=== PATIENT | male | born 1970 | race Caucasian/White ===

== ENCOUNTER 2016-12-13 16:08 | Emergency (ER) | payer OTHER ==
[2016-12-13] MEDS ORDERED: ASPIRIN 81 MG TABLET, CHEWABLE PO ONE (16:38)
--- NOTE | 2016-12-13 16:39 | ER Document Report ---
ED Medical Screen (RME) - General Chief Complaint: Chest Pain > 30 Stated Complaint: HEART PROBLEMS Time Seen by Provider: 12/13/16 16:23 Notes: 46-year-old male with stent 2 in the past, last placed 2015, who presents today with some intermittent left-sided biting" pain. No radiation, no aggravating relieving factors. No nausea, vomiting, shortness of breath, calf pain or leg swelling. TRAVEL OUTSIDE OF THE [place] IN LAST 30 DAYS: No - Related Data Allergies/Adverse Reactions: No Known Allergies Allergy (Verified 12/13/16 16:25) Past Medical History - Past Medical History Cardiac Medical History: Reports: Hx Heart Attack - September 2015 Renal/ Medical History: Denies: Hx Peritoneal Dialysis Musculoskeltal Medical History: Reports Hx Arthritis Past Surgical History: Reports: Hx Cardiac Catheterization - 2 stents, Hx Orthopedic Surgery - L knee - Immunizations Hx Diphtheria, Pertussis, Tetanus Vaccination: Yes Physical Exam - Vital signs Vitals: Temp Pulse Resp BP Pulse Ox 97.8 F 90 16 132/74 H 95 12/13/16 16:12 12/13/16 16:12 12/13/16 16:12 12/13/16 16:12 12/13/16 16:12 Course - Vital Signs Vital signs: Temp Pulse Resp BP Pulse Ox 97.8 F 90 16 132/74 H 95 12/13/16 16:12 12/13/16 16:12 12/13/16 16:12 12/13/16 16:12 12/13/16 16:12
[2016-12-13 17:21] LABS: ABSOLUTE BASOPHILS # (AUTO) 0.2 10^3/uL (0.0-0.2); ABSOLUTE EOSINOPHILS # (AUTO) 0.5 10^3/uL (0.0-0.6); ABSOLUTE LYMPHOCYTES (AUTO) 4.5 10^3/uL (0.5-4.7); ABSOLUTE MONOCYTES (AUTO) 0.9 10^3/uL (0.1-1.4); ABSOLUTE NEUT (AUTO) 5.1 10^3/uL (1.7-8.2); BASOPHILS % (AUTO) 1.4 % (0-2); EOSINOPHILS % (AUTO) 4.3 % (0-6); HEMATOCRIT 48.9 % (37.9-51.0); HEMOGLOBIN 16.8 g/dL (13.5-17.0); HGB HCT DIFFERENCE 1.5; LYMPHOCYTES % (AUTO) 40.5 % (13-45); MEAN CORPUSCULAR HEMOGLOBIN 29.9 pg (27.0-33.4); MEAN CORPUSCULAR HGB CONC 34.3 g/dL (32.0-36.0); MEAN CORPUSCULAR VOLUME 87 fl (80-97); MONOCYTES % (AUTO) 7.7 % (3-13); RED BLOOD COUNT 5.61 10^6/uL (4.35-5.55); SEGMENTED NEUTROPHILS % (AUTO) 46.1 % (42-78)
[2016-12-13 18:15] LABS: BLOOD UREA NITROGEN 14 mg/dL (7-20); CALCIUM 9.8 mg/dL (8.4-10.2); CREATININE RESULT 1.03 mg/dL (0.52-1.25); GLUCOSE 91 mg/dL (75-110)
[2016-12-13 18:16] LABS: ANION GAP 10 (5-19); CARBON DIOXIDE 27 mmol/L (22-30); CHLORIDE 102 mmol/L (98-107); POTASSIUM 4.5 mmol/L (3.6-5.0); SODIUM 138.9 mmol/L (137-145)
--- NOTE | 2016-12-13 19:58 | ER Document Report ---
ED Cardiac - General Chief Complaint: Chest Pain > 30 Stated Complaint: HEART PROBLEMS Time Seen by Provider: 12/13/16 16:23 Mode of Arrival: Ambulatory Information source: Patient TRAVEL OUTSIDE OF THE [place] IN LAST 30 DAYS: No - HPI Patient complains to provider of: Chest pain Was the onset of pain: Sudden Is the pain a: New problem Chest pain location: Pleuritic Quality of pain: Sharp, Stabbing Severity now: None Severity at worst: Moderate Pain level currently: 4 Chest pain precipitating factors: At Rest Positive cardiac history: Yes Exacerbated by: Deep breaths, Torso movement Relieved by: Nothing Notes: Patient is a 46-year-old male who presents to the emergency room complaining of sharp stabbing, fleeting intermittent chest pain that's been going on for the past month, he reports he has anywhere from 2-8 episodes per day, there are no aggravating or alleviating symptoms specifically, however when he does take a deep breath or moves a certain way he does get the pain at times, patient has a history of coronary artery disease with an LA and 2 stents placed in September 2015 , has a strong family history, has a follow up with his lamp assembler next week, denies any other symptoms associated with the chest pain, no shortness of breath , no diaphoresis, no leg pain, no recent travel or periods of immobilization - Related Data Allergies/Adverse Reactions: No Known Allergies Allergy (Verified 12/13/16 16:25) Past Medical History - General Information source: Patient - Social History Smoking Status: Unknown if Ever Smoked Family History: Reviewed & Not Pertinent Patient has suicidal ideation: No Patient has homicidal ideation: No - Past Medical History Cardiac Medical History: Reports: Hx Heart Attack - September 2015 Renal/ Medical History: Denies: Hx Peritoneal Dialysis Musculoskeltal Medical History: Reports Hx Arthritis Past Surgical History: Reports: Hx Cardiac Catheterization - 2 stents, Hx Orthopedic Surgery - L knee - Immunizations Hx Diphtheria, Pertussis, Tetanus Vaccination: Yes Review of Systems - Review of Systems Constitutional: No symptoms reported EENT: No symptoms reported Cardiovascular: Chest pain Respiratory: No symptoms reported Gastrointestinal: No symptoms reported Genitourinary: No symptoms reported Male Genitourinary: No symptoms reported Musculoskeletal: No symptoms reported Skin: No symptoms reported Hematologic/Lymphatic: No symptoms reported Neurological/Psychological: No symptoms reported -: Yes All other systems reviewed and negative Physical Exam - Vital signs Vitals: Temp Pulse Resp BP Pulse Ox 97.8 F 90 16 132/74 H 95 12/13/16 16:12 12/13/16 16:12 12/13/16 16:12 12/13/16 16:12 12/13/16 16:12 Interpretation: Normal - General General appearance: Appears well, Alert - HEENT Head: Normocephalic, Atraumatic Eyes: Normal Pupils: PERRL - Respiratory Respiratory status: No respiratory distress Chest status: Nontender Breath sounds: Normal Chest palpation: Normal - Cardiovascular Rhythm: Regular Heart sounds: Normal auscultation Murmur: No - Abdominal Inspection: Normal, Obese Distension: No distension Bowel sounds: Normal Tenderness: Nontender Organomegaly: No organomegaly - Back Back: Normal, Nontender - Extremities General upper extremity: Normal inspection, Nontender, Normal color, Normal ROM , Normal temperature General lower extremity: Normal inspection, Nontender, Normal color, Normal ROM , Normal temperature, Normal weight bearing. No: Christine's sign - Neurological Neuro grossly intact: Yes Cognition: Normal Orientation: AAOx4 Jennifer Coma Scale Eye Opening: Spontaneous Jennifer Coma Scale Verbal: Oriented Jennifer Coma Scale Motor: Obeys Commands [place] Coma Scale Total: 15 Speech: Normal Motor strength normal: LUE, RUE, LLE, RLE Sensory: Normal - Psychological Associated symptoms: Normal affect, Normal mood - Skin Skin Temperature: Warm Skin Moisture: Dry Skin Color: Normal Course - Re-evaluation Re-evalutation: 12/13/16 20:02 Patient has been having symptoms over the past month, workup in the emergency room today is unremarkable, I did discuss the possibility of PE, however his symptoms appear to be consistent with this, I offered to perform a CTA, however patient declined, stating that he has a follow-up with his lamp assembler next week, he will return if symptoms worsen in any way, patient acknowledges understanding and agreement with this plan - Vital Signs Vital signs: Temp Pulse Resp BP Pulse Ox 97.8 F 90 16 132/74 H 95 12/13/16 16:12 12/13/16 16:12 12/13/16 16:12 12/13/16 16:12 12/13/16 16:12 - Laboratory Result Diagrams: 12/13/16 16:40 12/13/16 16:40 Laboratory results interpreted by me: 12/13/16 16:40 WBC 11.0 H RBC 5.61 H - Diagnostic Test Radiology reviewed: Image reviewed, Reports reviewed - EKG Interpretation by Me EKG shows normal: Sinus rhythm Rate: Normal Rhythm: NSR Discharge - Discharge Clinical Impression: Chest pain Qualifiers: Chest pain type: unspecified Qualified Code(s): R07.9 - Chest pain, unspecified Condition: Stable Disposition: HOME, SELF-CARE Instructions: Chest Pain of Unclear Cause ([facility]) Additional Instructions: Follow up with your primary care provider and lamp assembler in one to 2 days. Return to the emergency room immediately if symptoms worsen or any additional concerns.
[2016-12-13 20:22] VITALS: BP 115/88
--- NOTE | 2016-12-13 22:10 | EKG REPORT ---
SEVERITY:- NORMAL ECG - SINUS RHYTHM : Confirmed by: Joi Grant MD 13-Dec-2016 22:10:26
== END 2016-12-13 20:21 | disposition home or self-care (01) ==
LOC: ER 16:08
DX: R07.9 Chest pain, unspecified (principal); I25.2 Old myocardial infarction
CPT/HCPCS: 36415; 71020; 80048; 84484; 85025; 93005; 93010; 99285

== ENCOUNTER 2017-10-25 06:20 | Emergency (ER) | payer OTHER ==
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
[2017-10-25] MEDS ORDERED: MECLIZINE HCL 25 MG TABLET PO ONE (08:25)
[2017-10-25 09:25] VITALS: BP 105/74
== END 2017-10-25 09:28 | disposition home or self-care (01) ==
LOC: ER 06:20
DX: R42 Dizziness and giddiness (principal); R11.0 Nausea; R25.1 Tremor, unspecified; F17.200 Nicotine dependence, unspecified, uncomplicated
CPT/HCPCS: 99283

== ENCOUNTER 2017-12-03 12:07 | Emergency (ER) | payer SELFPAY ==
--- NOTE | 2017-12-03 12:40 | ER Document Report ---
ED Medical Screen (RME) - General Chief Complaint: Vertigo Stated Complaint: DIZZINESS Time Seen by Provider: 12/03/17 12:34 Notes: 47-year-old male patient history of vertigo, much worse today. Head movement causes the room to spin violently. He has not taken any meclizine because it makes him drowsy and he does not like that sensation. He was seen here in September for similar symptoms and had Nadeem maneuver performed which relieved his symptoms for about 5 hours and then they returned. I have greeted and performed a rapid initial assessment of this patient. A comprehensive ED assessment and evaluation of the patient, analysis of test results and completion of the medical decision making process will be conducted by additional ED providers. TRAVEL OUTSIDE OF THE [place] IN LAST 30 DAYS: No - Related Data Allergies/Adverse Reactions: almond Allergy (Verified 12/03/17 12:10) Home Medications: metoprolol. asa. atrovastatin Past Medical History - Social History Frequency of alcohol use: None Drug Abuse: None - Past Medical History Cardiac Medical History: Reports: Hx Coronary Artery Disease, Hx Heart Attack - September 2015, [address] Baldwin [facility], Hx Hypercholesterolemia Comment Only: Hx Hypertension - meds for regulation Renal/ Medical History: Reports: Hx Kidney Stones. Denies: Hx Peritoneal Dialysis Musculoskeltal Medical History: Reports Hx Arthritis Past Surgical History: Reports: Hx Cardiac Catheterization - 2 stents, Hx Orthopedic Surgery - L knee - Immunizations Hx Diphtheria, Pertussis, Tetanus Vaccination: Yes Physical Exam - Vital signs Vitals: Temp Pulse Resp BP Pulse Ox 97.6 F 76 18 111/73 97 12/03/17 12:16 12/03/17 12:16 12/03/17 12:16 12/03/17 12:16 12/03/17 12:16 Course - Vital Signs Vital signs: Temp Pulse Resp BP Pulse Ox 97.6 F 76 18 111/73 97 12/03/17 12:16 12/03/17 12:16 12/03/17 12:16 12/03/17 12:16 12/03/17 12:16
[2017-12-03] MEDS ORDERED: DIAZEPAM 5 MG TABLET PO ONE (15:32)
[2017-12-03] MEDS ORDERED: NORMAL SALINE 1000 ML 1,000 ML IV ONE (15:32)
[2017-12-03] MEDS ORDERED: AMOXICILLIN TR/POT CLAVULANATE 500-125 MG TAB PO ONE (15:33)
--- NOTE | 2017-12-03 15:38 | ER Document Report ---
ED General - General Chief Complaint: Vertigo Stated Complaint: DIZZINESS Time Seen by Provider: 12/03/17 12:34 Mode of Arrival: Ambulatory Information source: Patient, Relative Notes: 47-year-old male with a history of coronary artery disease, tinnitus presents with complaint of dizziness. Patient states he has been experiencing intermittent episodes of dizziness that he describes as the room spinning for approximately 5 weeks. With worsening of the dizziness over the last few days. Patient does not want to take the meclizine that was prescribed to him because it makes him "narcoleptic". He states that the episodes occur frequently but last 10-20 seconds. Patient states dizziness worsens when he turns onto his right side and improves when he stands up. Patient states he has been experiencing right ear ringing for his entire life. Reports multiple ear infections with ruptured tympanic membranes as a child. Patient denies any recent illnesses, head injury, weakness, slurred speech. TRAVEL OUTSIDE OF THE [place] IN LAST 30 DAYS: No - HPI Onset: Other Onset/Duration: Gradual, Worse Quality of pain: No pain Associated symptoms: denies: Headache, Nausea, Vomiting Exacerbated by: Supine, Sitting Relieved by: Standing Similar symptoms previously: Yes Recently seen / treated by doctor: Yes - Related Data Allergies/Adverse Reactions: almond Allergy (Verified 12/03/17 12:10) morphine Allergy (Verified 12/03/17 12:50) Home Medications: metoprolol. asa. atrovastatin Past Medical History - General Information source: Patient, Relative - Social History Smoking Status: Current Every Day Smoker Frequency of alcohol use: None Drug Abuse: None Family History: Reviewed & Not Pertinent Patient has suicidal ideation: No Patient has homicidal ideation: No - Past Medical History Cardiac Medical History: Reports: Hx Coronary Artery Disease, Hx Heart Attack - September 2015, [address] Baldwin [facility], Hx Hypercholesterolemia Comment Only: Hx Hypertension - meds for regulation Renal/ Medical History: Reports: Hx Kidney Stones. Denies: Hx Peritoneal Dialysis Musculoskeltal Medical History: Reports Hx Arthritis Past Surgical History: Reports: Hx Cardiac Catheterization - 2 stents, Hx Orthopedic Surgery - L knee - Immunizations Hx Diphtheria, Pertussis, Tetanus Vaccination: Yes Review of Systems - Review of Systems Notes: Patient denies fever, chills, nausea, vomiting, headache, ear pain, sore throat , cough, chest pain, shortness of breath, abdominal pain, back pain, dysuria, hematuria, rash, Physical Exam - Vital signs Vitals: Temp Pulse Resp BP Pulse Ox 97.6 F 76 18 111/73 97 12/03/17 12:16 12/03/17 12:16 12/03/17 12:16 12/03/17 12:16 12/03/17 12:16 Interpretation: Normal. No: Hypertensive, Tachypneic Notes: PHYSICAL EXAMINATION: GENERAL: Well-appearing, well-nourished and in no acute distress. HEAD: Atraumatic, normocephalic. EYES: Pupils equal round and reactive to light, extraocular movements intact, sclera anicteric, conjunctiva are normal. Right sided nystagmus. No vertical nystagmus ENT: Nares patent, oropharynx clear without exudates. Moist mucous membranes. Right TM-erythematous, bulging, right external canal, erythematous with swelling no exudate. NECK: Normal range of motion, supple without lymphadenopathy LUNGS: Breath sounds clear to auscultation bilaterally and equal. No wheezes rales or rhonchi. HEART: Regular rate and rhythm without murmurs ABDOMEN: Soft, nontender, nondistended abdomen. No guarding, no rebound. No masses appreciated. Musculoskeletal: Normal range of motion, no pitting or edema. No cyanosis. NEUROLOGICAL: Cranial nerves grossly intact. Normal speech, normal gait. Normal sensory, motor exams. NIH 0 PSYCH: Normal mood, normal affect. SKIN: Warm, Dry, normal turgor, no rashes or lesions noted. Course - Re-evaluation Re-evalutation: Head CTA 12/03/17 15:31 IMPRESSION: 1. Normal appearance of the brain. 2. Normal CTA of the head. 3. Normal CTA of the carotids. Neck CTA 12/03/17 15:31 IMPRESSION: 1. Normal appearance of the brain. 2. Normal CTA of the head. 3. Normal CTA of the carotids. 12/03/17 21:40 47-year-old male with a history of chronic tinnitus, multiple previous ear infections and tympanic membrane ruptures presents with complaint of dizziness that he describes as the room spinning. Patient has no associated nausea or vomiting. He states that symptoms are worsened when he rolls to his right side. He states episodes last 10-30 seconds. Patient was seen previously and prescribed meclizine which he does not want to take because it makes him too sleepy. He denies any recent illnesses. He denies any head injury. Exam is significant for right sided nystagmus, there is no vertical nystagmus, and an erythematous, bulging right tympanic membranes and external canal. Symptoms are reproducible with rapid head movement and sitting up. Patient has an NIH of 0, he is able to ambulate independently. CTA of the head and neck were obtained and within normal limits. Patient received IV fluids, Augmentin, meclizine during his ED course. On reevaluation patient is well-appearing, reports resolution of symptoms. ENT referral was provided. Patient's exam is consistent with benign positional vertigo. Patient provided the opportunity to ask questions, and express concerns. Discharge instructions discussed. Patient is agreeable with discharge home. Return indications explained and discussed with the patient who displays understanding. Patient encouraged to return to the emergency department immediately with any concerns. 12/03/17 21:44 - Vital Signs Vital signs: Temp Pulse Resp BP Pulse Ox 97.4 F 68 16 124/72 97 12/03/17 18:10 12/03/17 18:10 12/03/17 18:10 12/03/17 18:10 12/03/17 18:10 - Laboratory Result Diagrams: 12/03/17 16:00 Laboratory results interpreted by me: 12/03/17 16:00 ALT 79 H - Diagnostic Test Radiology reviewed: Image reviewed Discharge - Discharge Clinical Impression: Right otitis media Qualifiers: Otitis media type: unspecified Qualified Code(s): H66.91 - Otitis media, unspecified, right ear BPPV (benign paroxysmal positional vertigo) Qualifiers: Laterality: right Qualified Code(s): H81.11 - Benign paroxysmal vertigo, right ear Disposition: HOME, SELF-CARE Instructions: Otitis Media ([facility]), Vertigo ([facility]) Additional Instructions: Follow up with your physician tomorrow for further care or return to the ED IMMEDIATELY if symptoms worsen or new concerns occur. If you cannot afford to follow up with your primary care physician a list of low cost clinics have been provided at the end of your discharge papers as well. Prescriptions: Amox Tr/Potassium Clavulanate [Augmentin 875-125 Tablet] 1 tab PO BID 10 Days # 20 tablet Meclizine HCl [Antivert 12.5 mg Tablet] 12.5 mg PO BID PRN #14 tab PRN Reason: Polymyxin B Sulf/Trimethoprim [Polytrim Eye Drops] 10 ml OP Q4H 7 Days #1 bottle Referrals: NATACHA DOCKERY DO [ASSOCIATE] - 12/04/17
[2017-12-03 16:37] LABS: ALANINE AMINOTRANSFERASE 79 U/L (21-72); ALBUMIN 4.8 g/dL (3.5-5.0); ALKALINE PHOSPHATASE 78 U/L (38-126); ANION GAP 12 (5-19); ASPARTATE AMINO TRANSFERASE 52 U/L (17-59); BILIRUBIN,DIRECT 0.4 mg/dL (0.0-0.4); BILIRUBIN,TOTAL 0.7 mg/dL (0.2-1.3); BLOOD UREA NITROGEN 16 mg/dL (7-20); CALCIUM 10.1 mg/dL (8.4-10.2); CARBON DIOXIDE 29 mmol/L (22-30); CHLORIDE 102 mmol/L (98-107); GLUCOSE 91 mg/dL (75-110); POTASSIUM 4.5 mmol/L (3.6-5.0); SODIUM 143.3 mmol/L (137-145); TOTAL PROTEIN 7.9 g/dL (6.3-8.2)
--- NOTE | 2017-12-03 16:37 | RADIOLOGY REPORT (SQ) ---
EXAM DESCRIPTION: CTA NECK; CTA HEAD COMPLETED DATE/TIME: 12/03/2017 4:24 pm REASON FOR STUDY: Persistent vertigo COMPARISON: None. TECHNIQUE: Axial dynamic scanning technique with dynamic contrast enhancement through the extra-scrap iron cutter nial carotid and vertebral arteries and cerebral arteries. Pre contrast CT brain scanning was also performed. Multiplanar reconstruction. 3-D MIPS and Volume-rendered images acquired at the worksta tion and saved to PACS. Images are reviewed in soft tissue, bone, lung windows. All CT scanners at this facility use dose modulation, iterative reconstruction, and/or weight based d osing when appropriate to reduce radiation dose to as low as reasonably achievable (ALARA). [facility]: Dose Right [facility]: CareDose [facility]: Dose Right [facility]: Teradose 4D [facility]: [employer] CONTRAST TYPE AND DOSE: contrast/concentration: Isovue 370.00 mg/ml; Total Contrast Delivered: 70.0 ml; Total Saline Delivered: 75.0 ml RENAL FUNCTION: Not provided. LIMITATIONS: None. FINDINGS: Brain Precontrast appearance is normal. No hemorrhage or mass or shift or hydrocephalus. No fluid levels in the sinuses. Normal orbits. Intact bones. CTA [place] Distal vertebral and carotid arteries are patent. No occlusion of the anterior, middle or posterior cerebral arteries. No gross suggestion of aneurysm. CTA neck Normal 3 vessel origin. Right common, internal and external carotid arteries are patent without evid ence of significant stenosis, occlusion or dissection. Bilateral vertebral arteries are widely paten t. Lung apices are clear. Soft tissues of the neck look normal. Bones intact allowing for cervical spondylosis. OTHER: 3-D reconstructions confirm findings. IMPRESSION: 1. Normal appearance of the brain. 2. Normal CTA of the head. 3. Normal CTA of the c arotids. COMMENT: Quality ID #[id number]: Measurements of distal internal carotid diameter were used as the denomina tor for stenosis measurement. TECHNICAL DOCUMENTATION: JOB ID: [id number] Quality ID # [id number]: Final reports with documentation of one or more dose reduction techniques (e.g., Au tomated exposure control, adjustment of the mA and/or kV according to patient size, use of iterative reconstruction technique) 2010 [employer]- All Rights Reserved Reading location - IP/workstation name: [email or web address]
--- NOTE | 2017-12-03 16:37 | RADIOLOGY REPORT (SQ) ---
EXAM DESCRIPTION: CTA NECK; CTA HEAD COMPLETED DATE/TIME: 12/03/2017 4:24 pm REASON FOR STUDY: Persistent vertigo COMPARISON: None. TECHNIQUE: Axial dynamic scanning technique with dynamic contrast enhancement through the extra-leather scraper nial carotid and vertebral arteries and cerebral arteries. Pre contrast CT brain scanning was also performed. Multiplanar reconstruction. 3-D MIPS and Volume-rendered images acquired at the worksta tion and saved to PACS. Images are reviewed in soft tissue, bone, lung windows. All CT scanners at this facility use dose modulation, iterative reconstruction, and/or weight based d osing when appropriate to reduce radiation dose to as low as reasonably achievable (ALARA). [facility]: Dose Right [facility]: CareDose [facility]: Dose Right [facility]: Teradose 4D [facility]: SustainX CONTRAST TYPE AND DOSE: contrast/concentration: Isovue 370.00 mg/ml; Total Contrast Delivered: 70.0 ml; Total Saline Delivered: 75.0 ml RENAL FUNCTION: Not provided. LIMITATIONS: None. FINDINGS: Brain Precontrast appearance is normal. No hemorrhage or mass or shift or hydrocephalus. No fluid levels in the sinuses. Normal orbits. Intact bones. CTA [place] Distal vertebral and carotid arteries are patent. No occlusion of the anterior, middle or posterior cerebral arteries. No gross suggestion of aneurysm. CTA neck Normal 3 vessel origin. Right common, internal and external carotid arteries are patent without evid ence of significant stenosis, occlusion or dissection. Bilateral vertebral arteries are widely paten t. Lung apices are clear. Soft tissues of the neck look normal. Bones intact allowing for cervical spondylosis. OTHER: 3-D reconstructions confirm findings. IMPRESSION: 1. Normal appearance of the brain. 2. Normal CTA of the head. 3. Normal CTA of the c arotids. COMMENT: Quality ID #[id number]: Measurements of distal internal carotid diameter were used as the denomina tor for stenosis measurement. TECHNICAL DOCUMENTATION: JOB ID: [id number] Quality ID # [id number]: Final reports with documentation of one or more dose reduction techniques (e.g., Au tomated exposure control, adjustment of the mA and/or kV according to patient size, use of iterative reconstruction technique) 2010 [employer] All Rights Reserved Reading location - IP/workstation name: [email or web address]
[2017-12-03] MEDS ORDERED: MECLIZINE HCL 12.5 MG TABLET PO ONE (17:25)
[2017-12-03] MEDS ORDERED: MECLIZINE HCL 12.5 MG TABLET ONE (17:51)
[2017-12-03 18:11] VITALS: BP 124/72
--- NOTE | 2017-12-03 19:07 | EKG REPORT ---
SEVERITY:- NORMAL ECG - SINUS RHYTHM : Confirmed by: Steve Funes 03-Dec-2017 19:06:48
== END 2017-12-03 18:33 | disposition home or self-care (01) ==
LOC: ER 12:07
DX: H66.91 Otitis media, unspecified, right ear (principal); H81.11 Benign paroxysmal vertigo, right ear; F17.200 Nicotine dependence, unspecified, uncomplicated; I25.10 Atherosclerotic heart disease of native coronary artery without angina pectoris; E78.00 Pure hypercholesterolemia, unspecified; I25.2 Old myocardial infarction; Z87.442 Personal history of urinary calculi
CPT/HCPCS: 93005; 99284; 96360; 36415; 80053; 70496; 70498; 93010; J3490; J7030